=== PATIENT | female | born 1970 | race Caucasian/White ===

== ENCOUNTER 2016-04-16 20:41 | Emergency (ER) ==
[2016-04-16 21:55] LABS: URINE SOURCE CLEAN CATCH
[2016-04-16 21:55] LABS: MANUAL DIFF NEEDED? NO
[2016-04-16 21:59] LABS: BASO% 0.3 % (0.0-0.8); EOS# 0.08 X1000 (0.0-0.7); HEMATOCRIT 40.1 % (37.0-47.0); HEMOGLOBIN 13.6 g/dL (12.0-16.0); IMM GRAN# 0.01 X1000 (0.0-0.04); IMM GRAN% 0.1 % (0.0-0.5); LYMPH# 2.26 X1000 (1.2-3.4); LYMPH% 29.1 % (20.5-51.1); MCH 29.1 PG (27-31); MCHC 33.9 g/dL (33-37); MCV 85.7 FL (81-99); MONO% 7.7 % (1.7-9.3); MPV 9.6 FL (7.4-10.4); NEUT% 61.8 % (42.2-75.2); PLT 274 X1000 (130-400); RBC 4.68 XMIL (4.2-5.4)
[2016-04-16 22:12] LABS: AGAP 13; ALBUMIN 4.2 g/dL (3.5-5.0); ALKALINE PHOSPHATASE 122 U/L (32-104); AMYLASE 35 U/L (20-200); BUN 7 mg/dL (8-22); CALCIUM 9.2 mg/dL (8.8-10.2); CHLORIDE 101 mmol/L (98-107); COSMO 271; GOT 24 U/L (10-30); GPT 25 U/L (10-36); LIPASE 25 U/L (13-60); POTASSIUM 3.1 mmol/L (3.5-5.1); SODIUM 137 mmol/L (136-145); TCO2 24 mmol/L (25-35); TOTAL PROTEIN 7.6 g/dL (6.3-8.3)
[2016-04-16 22:18] LABS: BILIRUBIN URINE NEGATIVE (NEGATIVE); BLOOD URINE TRACE (NEGATIVE); CLARITY CLEAR (CLEAR); COLOR YELLOW; GLUCOSE URINE NEGATIVE (NEGATIVE); LEUKOCYTES URINE TRACE (NEGATIVE); NITRITE URINE NEGATIVE (NEGATIVE); PROTEIN URINE TRACE mg/dL (NEGATIVE); URINE CULTURE PL NEEDED? YES; URINE EPITHELIAL CELLS <10 /HPF (<10); URINE RBC <10 /HPF (<10); URINE WBC <10 /HPF (<10); UROBILINOGEN URINE NORMAL
[2016-04-16] MEDS ORDERED: ZOFRAN IV ONE (22:29)
[2016-04-16] MEDS ORDERED: NS 1,000 ML IV ONE (22:29)
[2016-04-16] MEDS ORDERED: PROTONIX IV ONE (22:29)
[2016-04-16] MEDS ORDERED: SODIUM CHLORIDE 0.9% INJ ONE (22:29)
--- NOTE | 2016-04-16 22:47 | PROVIDER DOCUMENTATION ---
HPI-Abdominal Pain/GI Problem - General Source: patient - History of Present Illness-ABD Nature of Presenting Problems: 45 y/o F presents to the ED with a days hx of abdominal pain and vomiting. Pt states her vomit began as green then was yellow bile. Pt states she went to the [facility] the first day and had an ultra sound but does not remember the DX. Pt states to the pain began in sh[place]ram upper middles stomach going into her back and RUQ pain Abdominal Pain Onset Location: reports: RUQ, epigastric Pain Radiation: reports: back Quality of Pain: reports: aching Severity in ED: reports: moderate Onset/Duration: reports: 3 days ago Timing: reports: still present Modifying Factors: improves with: nothing Associated Symptoms: reports: nausea, vomiting. denies: cough, fever/chills, shortness of breath, trouble walking <Gregory Davila - Last Filed: 04/16/16 22:42> <Angella Rees - Last Filed: 04/17/16 00:02> - General Chief Complaint: Abdominal Pain Stated Complaint: ABD PAIN,VOMITING GREEN STUFF Time Seen by Provider: 04/16/16 22:03 Allergies/Adverse Reactions: Patient Allergies Allergy/AdvReac Type Severity Reaction Status Date / Time Penicillins Allergy RASH Verified 04/16/16 20:55 Home Medications: Home Medication List Medication Instructions Recorded Confirmed Last Taken Type Dicyclomine [Bentyl] 10 mg PO 4XDAY #20 capsule 04/17/16 Unknown Rx Loperamide [Imodium] 2 mg PO PRN PRN #10 capsule 04/17/16 Unknown Rx Metoclopramide [Reglan] 10 mg PO Q6HR #14 tablet 04/17/16 Unknown Rx Review of Systems - Adult - REVIEW OF SYSTEMS - ADULT Constitutional: denies: chills, fever Eyes: reports: no symptoms reported Ears, Nose, Mouth & Throat: reports: no symptoms reported Cardiovascular: denies: chest pain, edema Respiratory: denies: cough, shortness of breath, wheezing Gastrointestinal: reports: abdominal pain, nausea, vomiting. denies: constipation, diarrhea Genitourinary: reports: no symptoms reported Musculoskeletal: reports: no symptoms reported Integumentary: reports: no symptoms reported Neurological: reports: no symptoms reported Psychiatric: reports: no symptoms reported Endocrine: reports: no symptoms reported Hematologic/Lymphatic: reports: no symptoms reported Allergic/Immunologic: reports: no symptoms reported All Other Systems: Reviewed and Negative <LolaGregory - Last Filed: 04/16/16 22:42> Past History - Adult - PAST MEDICAL HISTORY-ADULT Review of Records: reports: Old Records Reviewed, Nursing Assessment Review, Medications Reviewed - SOCIAL HISTORY Smoking: non-smoker Living Situation: family <LolaGregory - Last Filed: 04/16/16 22:42> Physical Exam-General - PHYSICAL EXAM-ADULT Initial Vital Signs Reviewed: Yes - CONSTITUTIONAL General Appearance: appears well, alert, no apparent distress - EYES Eyes: PERRL/EOMI, pink conjunctivae - HEAD, EARS, NOSE, MOUTH & THROAT HENMT: moist mucous membranes, normal ENT inspection, TMs normal, pharynx normal - NECK Neck: non-tender, full range of motion, supple - RESPIRATORY Respiratory: lungs clear, normal breath sounds, no pleuratic chest pain, no respiratory distress, no accessory muscle use - CARDIOVASCULAR Cardiovascular: normal peripheral pulses, regular rate, rhythm - GASTROINTESTINAL (ABDOMEN) Abdominal Exam: normal bowel sounds, soft, tenderness (generalized tenderness worse in the epigastric area) - MUSCULOSKELETAL Back Exam: normal inspection, no CVA tenderness, no vertebral tenderness Extremity: normal range of motion, non-tender, normal gait, normal inspection - SKIN Integumentary: normal color, normal turgor, warm/dry - NEUROLOGIC Neurologic: grossly normal, no motor/sensory deficits - PSYCHIATRIC Psych/Mental Status: normal mood/affect, normal thought content, normal thought process, oriented x 3 <LolaGregory - Last Filed: 04/16/16 22:42> Progress - PLAN OF CARE/RESULTS Progress/Plan/Lab Results: Orders Category Date Time Status CT ABD/PELVIS W/ IV CONT ONLY [CT] Stat Exams 04/16/16 22:31 Taken AMYLASE [CHEM] Stat Lab 04/16/16 21:20 Completed CBC WITH DIFF [HEME] Stat Lab 04/16/16 21:20 Completed COMPREHENSIVE METABOLIC PANEL [CHEM] Stat Lab 04/16/16 21:20 Completed LIPASE [CHEM] Stat Lab 04/16/16 21:[address] W/POSS RFLX CULT [URINALYSIS] Stat Lab 04/16/16 21:10 Completed URINE CULTURE [RM] Routine Lab 04/16/16 22:19 Ordered 0.9% Sodium Chloride Inj [Ns] 1,000 ml Med 04/16/16 22:29 Discontinued IV 999 mls/hr Ondansetron [Zofran] Med 04/16/16 22:29 Discontinued 4 mg IV NOW ONE Pantoprazole [Protonix] Med 04/16/16 22:29 Discontinued 40 mg IV NOW ONE Sodium Chloride 0.9% Med 04/16/16 22:29 Discontinued 10 ml INJ NOW ONE Vital Signs Temp Pulse Resp BP Pulse Ox 04/16/16 20:56 97.9 F 90 18 130/92 100 Penicillins Allergy (Verified 04/16/16 20:55) RASH No Home Medications 04/16/16 Laboratory 04/16/16 04/16/16 04/16/16 21:20 21:20 21:10 WBC 7.76 RBC 4.68 Hgb 13.6 Hct 40.1 MCV 85.7 MCH 29.1 MCHC 33.9 RDW Std Deviation 13.7 Plt Count 274 MPV 9.6 Immature Gran % (Auto) 0.1 Neut % (Auto) 61.8 Lymph % (Auto) 29.1 Ellis % (Auto) 7.7 Eos % (Auto) 1.0 Baso % (Auto) 0.3 Immature Gran # (Auto) 0.01 Neut # (Auto) 4.79 Lymph # (Auto) 2.26 Ellis # (Auto) 0.60 H Eos # (Auto) 0.08 Baso # (Auto) 0.02 Sodium 137 Potassium 3.1 L Chloride 101 Carbon Dioxide 24 L Anion Gap 13 BUN 7 L Creatinine 0.7 Estimated GFR/1.73 m2 > 60 BUN/Creatinine Ratio 10 Glucose 82 Calculated Osmolality 271 Calcium 9.2 Total Bilirubin 0.70 AST 24 ALT 25 Alkaline Phosphatase 122 H Total Protein 7.6 Albumin 4.2 Globulin 3.0 Albumin/Globulin Ratio 1.0 Amylase 35 Lipase 25 Urine Source CLEAN CATCH Urine Color YELLOW Urine Clarity CLEAR Urine pH 5.0 Ur Specific [place] 1.020 Urine Protein TRACE A Urine Ketones TRACE Urine Blood TRACE Urine Nitrite NEGATIVE Urine Bilirubin NEGATIVE Urine Urobilinogen NORMAL Urine Microscopic RBC <10 Urine WBC TRACE A Urine Microscopic WBC <10 Ur Epithelial Cells <10 Urine Bacteria 3+ Urine Glucose NEGATIVE Discussed pt, including labwork and CT results with Dr. Dalal- he agreed with d /c home with f/u to Dr. Palma and GI. Discussed results and f/u with pt. - CT/MRI 1 CT Study: Abdomen, Pelvis Impression: See EMR Report (1. Splenomegaly. 2. Indeterminate subcentimeter liver hypodensity. -per Dr. Florentino ([facility])) <Angella Rees - Last Filed: 04/17/16 00:02> Departure <Gregory Davila - Last Filed: 04/16/16 22:42> - Departure Time of Disposition Order: 23:50 Certified Medical Emergency: Emergent <Angella Rees - Last Filed: 04/17/16 00:02> - Departure DIAGNOSIS: Splenomegaly, Liver lesion Abdominal pain Qualifiers: Abdominal location: epigastric Qualified Code(s): R10.13 - Epigastric pain Vomiting Qualifiers: Vomiting type: unspecified Vomiting Intractability: non-intractable Nausea presence: unspecified Qualified Code(s): R11.10 - Vomiting, unspecified Disposition: HOME 01 Condition: Stable Additional Instructions: Take medications as directed. Drink plenty of fluids. Follow up with Dr. Palma or Dr. Moreno for further evaluation. ED Follow Up Instructions: You have been treated by a care provider in the Emergency Department. These instructions are being provided to you so you can have an understanding of how to care for yourself upon discharge. Upon discharge from the Emergency Department, you are responsible for making arrangements for follow-up care by a physician of your choice. Take all prescribed medications as directed. Return to the Emergency Department immediately for any new or worsening symptoms. You may call the Physician Referral phone number at [phone] to obtain a list of Physicians who are taking new patients. Prescriptions: Dicyclomine [Bentyl] 10 mg PO 4XDAY #20 capsule Loperamide [Imodium] 2 mg PO PRN PRN #10 capsule PRN Reason: Diarrhea Metoclopramide [Reglan] 10 mg PO Q6HR #14 tablet Referrals: None,PCP [Primary Care Provider] - Hans Palma MD [STAFF PHYSICIAN] - Rigo Moreno MD [STAFF PHYSICIAN] - Attestation - Scribe Verification/Attestation Scribe:: Gregory Davila Acting as Scribe for:: Michael Dalal Scribe documention review:: This chart was documented by a scribe and accurately reflects the service the provider performed and the decisions made by the provider. <Gregory Davila - Last Filed: 04/16/16 22:42> Physician Attestation
[2016-04-17 00:26] VITALS: BP 144/91
--- NOTE | 2016-04-17 08:05 | Diag Imaging Result Document ---
PROCEDURE NAME: CT ABD/PELVIS W/ IV CONT ONLY - 04/16/2016 CT ABDOMEN PELVIS WITH INTRAVENOUS CONTRAST, 04/16/2016: COMPARISON: None. FINDINGS: The lung bases are clear and the heart size is normal. There is a tiny cyst in the liver measuring less than 1 cm. The gallbladder is collapsed. The spleen is mildly enlarged measuring 14.2 x 5.1 cm. No bowel obstruction or inflammation. Normal appendix. Uterus is absent. Urinary bladder, ovaries and rectum are normal. Bony structures are intact. IMPRESSION: Mild splenomegaly. Otherwise, no acute disease.
== END 2016-04-17 00:26 | disposition home or self-care (01) ==
LOC: P.ED 20:41
DX: R16.1 Splenomegaly, not elsewhere classified (principal); K76.9 Liver disease, unspecified; R10.13 Epigastric pain; R11.2 Nausea with vomiting, unspecified; R10.11 Right upper quadrant pain; M54.9 Dorsalgia, unspecified; R10.817 Generalized abdominal tenderness; R10.816 Epigastric abdominal tenderness
CPT/HCPCS: 74177; 80053; 81001; 82150; 83690; 85025; 87088; 96361; 96374; 96375; C9113; J2405; J7030; Q9967; S0164

== ENCOUNTER 2016-04-18 17:27 | Emergency (ER) ==
[2016-04-18] MEDS ORDERED: ZOFRAN IV ONE (18:43)
[2016-04-18] MEDS ORDERED: SODIUM CHLORIDE 0.9% INJ ONE (18:43)
[2016-04-18] MEDS ORDERED: PROTONIX IV ONE (18:43)
[2016-04-18] MEDS ORDERED: NS 1,000 ML IV ONE (18:43)
--- NOTE | 2016-04-18 19:20 | PROVIDER DOCUMENTATION ---
HPI-Abdominal Pain/GI Problem - General Chief Complaint: Return/Recheck Stated Complaint: RETURN/RECHECK ABD PAIN Time Seen by Provider: 04/18/16 18:41 Source: patient Allergies/Adverse Reactions: Patient Allergies Allergy/AdvReac Type Severity Reaction Status Date / Time Penicillins Allergy RASH Verified 04/16/16 20:55 Home Medications: Home Medication List Medication Instructions Recorded Confirmed Last Taken Type Dicyclomine [Bentyl] 10 mg PO 4XDAY #20 capsule 04/17/16 Unknown Rx Loperamide [Imodium] 2 mg PO PRN PRN #10 capsule 04/17/16 Unknown Rx Metoclopramide [Reglan] 10 mg PO Q6HR #14 tablet 04/17/16 Unknown Rx Hydrocodone/APAP 7.5 mg/325 mg 1 each PO Q6H PRN PRN #20 tablet 04/18/16 Unknown Rx [Montrose-7.5] Promethazine [Phenergan] 25 mg WV Q6H PRN PRN #20 supp 04/18/16 Unknown Rx - History of Present Illness-ABD Nature of Presenting Problems: 45 y/o WF c/o abdominal pain x 5 days, in the epigastric to ruq region, radiation to the mid back and the right scapula; having nasuea and vomiting intermittanly since then. She was seen in the [facility] ER on Thursday and states "nothing was done," but reports them doing an xray and an US, stating she had polyps in her gallbladder per patient. She was then seen in our ER 2 days ago for the same complaint. Here a CBC, CMP, amylase and lipase were completed and an CT c IV contrast, showing a lesion on the liver and splenomegaly. She was given f/u to Dr. Palma and Dr. Moreno, GI. tTates she cannot get an appointment with either until the end of April. Last night at 0200, she was awakened by vomiting in her sleep, which she states she almost choked on. denies cough or sob today. Has vomiting 2-3 times since then with bouts of diarrhea. Patient admits to being under a lot of stress lately. Abdominal Pain Onset Location: reports: RUQ, epigastric Pain Radiation: reports: shoulder, back Quality of Pain: reports: aching, pressure Severity in ED: reports: mild Onset/Duration: reports: 5 days ago Timing: reports: still present Review of Systems - Adult - REVIEW OF SYSTEMS - ADULT Constitutional: reports: see HPI, fatique. denies: chills, fever Eyes: reports: no symptoms reported. denies: blurred vision, double vision, eye pain Ears, Nose, Mouth & Throat: reports: no symptoms reported. denies: ear pain, nose pain, throat pain Cardiovascular: reports: no symptoms reported. denies: chest pain, palpitations Respiratory: reports: no symptoms reported. denies: cough, shortness of breath Gastrointestinal: reports: see HPI, abdominal pain, diarrhea, nausea, poor appetite, vomiting Genitourinary: reports: no symptoms reported. denies: dysuria, discharge, frequency, incontinence Musculoskeletal: reports: no symptoms reported. denies: bone pain, back pain, muscle aches Integumentary: reports: no symptoms reported. denies: rash Neurological: reports: no symptoms reported. denies: headache/migraines Psychiatric: reports: no symptoms reported Endocrine: reports: no symptoms reported Hematologic/Lymphatic: reports: no symptoms reported Allergic/Immunologic: reports: no symptoms reported All Other Systems: Reviewed and Negative Past History - Adult - PAST MEDICAL HISTORY-ADULT Review of Records: reports: Old Records Reviewed, Nursing Assessment Review, Medications Reviewed Major Childhood Illnesses: reports: denies history Cardiovascular: reports: denies history Respiratory: reports: denies history Gastrointestinal: reports: denies history Obstetrical/Gynecological: reports: denies history Genitourinary: reports: denies history Musculoskeletal: reports: denies history Neurological: reports: denies history Endocrine/Immune: reports: denies history Other Conditions: reports: denies history - PRIOR SURGERIES/PROCEDURES Surgical/Procedure History: reports: reviewed, not pertinent - IMMUNIZATION STATUS Childhood Immunizations: See Nurse Assessment Flu Vaccine: See Nurse Assessment - FAMILY HISTORY Family History: reviewed, not pertinent - SOCIAL HISTORY Smoking: denies Substance Use: none/never Alcohol Use Frequency: never Physical Exam-General - PHYSICAL EXAM-ADULT Initial Vital Signs Reviewed: Yes - CONSTITUTIONAL General Appearance: appears well, alert, no apparent distress - EYES Eyes: PERRL/EOMI, pink conjunctivae - HEAD, EARS, NOSE, MOUTH & THROAT HENMT: normocephalic/atraumatic, moist mucous membranes - NECK Neck: non-tender, full range of motion, supple, normal inspection - RESPIRATORY Respiratory: chest non-tender, lungs clear, normal breath sounds, no pleuratic chest pain, no respiratory distress, no accessory muscle use. negative: respiratory distress, decreased breath sounds, accessory muscle use, crackles, rales, rhonchi, wheezing - CARDIOVASCULAR Cardiovascular: normal peripheral pulses, regular rate, rhythm - GASTROINTESTINAL (ABDOMEN) Abdominal Exam: normal bowel sounds, soft, no organomegaly, no pulsatile mass, tenderness (epigastric, rup). negative: McBurney's point tenderness, Ram's sign - MUSCULOSKELETAL Back Exam: normal inspection, CVA tenderness Extremity: normal gait - SKIN Integumentary: normal color, normal turgor, warm/dry - NEUROLOGIC Neurologic: grossly normal, no motor/sensory deficits - PSYCHIATRIC Psych/Mental Status: normal mood/affect, normal thought content, normal thought process Progress - PLAN OF CARE/RESULTS Progress/Plan/Lab Results: Vital Signs Temp Pulse Resp BP Pulse Ox 04/18/16 17:28 98.5 F 93 H 20 142/90 100 Penicillins Allergy (Verified 04/16/16 20:55) RASH Dicyclomine [Bentyl] 10 mg PO 4XDAY #20 capsule 04/17/16 Loperamide [Imodium] 2 mg PO PRN PRN #10 capsule 04/17/16 Metoclopramide [Reglan] 10 mg PO Q6HR #14 tablet 04/17/16 Dietary Diet NPO Start Thu 3 1843 Laboratory 04/18/16 19:08 Urine Source CLEAN CATCH Urine Color YELLOW Urine Clarity CLEAR Urine pH 5.0 Ur Specific Ronda 1.015 Urine Protein TRACE A Urine Ketones NEGATIVE Urine Blood TRACE Urine Nitrite NEGATIVE Urine Bilirubin NEGATIVE Urine Urobilinogen 1+(1 mg/dL) Urine WBC TRACE A Urine Glucose NEGATIVE Orders Category Date Time Status Saline Loc DIRECTED Care 04/18/16 18:43 Active NPO Diet 04/18/16 18:43 Active US GB < RUQ (LIMITED) [US] Stat Exams 04/18/16 18:52 Ordered AMYLASE [CHEM] Stat Lab 04/18/16 18:43 Ordered CBC WITH ELECTRONIC DIFF [HEME] Stat Lab 04/18/16 18:43 Ordered COMPREHENSIVE METABOLIC PANEL [CHEM] Stat Lab 04/18/16 18:43 Ordered LIPASE [CHEM] Stat Lab 04/18/16 18:[address] W/POSS RFLX CULT [URINALYSIS] Stat Lab 04/18/16 19:08 Results 0.9% Sodium Chloride Inj [Ns] 1,000 ml Med 04/18/16 18:43 Discontinued IV 999 mls/hr Ondansetron [Zofran] Med 04/18/16 18:43 Discontinued 8 mg IV NOW ONE Pantoprazole [Protonix] Med 04/18/16 18:43 Discontinued 40 mg IV NOW ONE Sodium Chloride 0.9% Med 04/18/16 18:43 Discontinued 10 ml INJ NOW ONE Laboratory Tests 04/18/16 04/18/16 04/18/16 19:08 20:04 20:04 WBC 7.17 RBC 4.48 Hgb 12.8 Hct 39.1 MCV 87.3 MCH 28.6 MCHC 32.7 L RDW Std Deviation 13.9 Plt Count 283 MPV 9.6 Immature Gran % (Auto) 0.3 Neut % (Auto) 62.3 Lymph % (Auto) 30.4 Grundy % (Auto) 6.0 Eos % (Auto) 0.6 Baso % (Auto) 0.4 Immature Gran # (Auto) 0.02 Neut # (Auto) 4.47 Lymph # (Auto) 2.18 Grundy # (Auto) 0.43 Eos # (Auto) 0.04 Baso # (Auto) 0.03 Sodium 139 Potassium 3.2 L Chloride 105 Carbon Dioxide 24 L Anion Gap 10 BUN 9 Creatinine 0.7 Estimated GFR/1.73 m2 > 60 BUN/Creatinine Ratio 13 Glucose 80 Calculated Osmolality 275 Calcium 8.9 Total Bilirubin 0.60 AST 32 H ALT 34 Alkaline Phosphatase 122 H Total Protein 7.3 Albumin 3.9 Globulin 3.0 Albumin/Globulin Ratio 1.0 Amylase 35 Lipase 33 Urine Source CLEAN CATCH Urine Color YELLOW Urine Clarity CLEAR Urine pH 5.0 Ur Specific Ronda 1.015 Urine Protein TRACE A Urine Ketones NEGATIVE Urine Blood TRACE Urine Nitrite NEGATIVE Urine Bilirubin NEGATIVE Urine Urobilinogen 1+(1 mg/dL) Urine Microscopic RBC <10 Urine WBC TRACE A Urine Microscopic WBC <10 Ur Epithelial Cells >10 A Urine Bacteria 1+ Urine Glucose NEGATIVE Discussed patient with Dr. Dalal who reviewed chart and radiology, agrees with treatment disposition and plan. - REASSESSMENT Reassessment #1 Time Reassessed: 20:52 (Patient feeling better. I discussed lab results and US report, she verbalized understanding and agreement. ) Status: improving - XRAY 1 XRAY: Bilateral XRAY Study: Lumbar Spine Impression: Normal (NAD per Dr. Dalal, ER prelim) - ULTRASOUND (By Radiology) 1 US Study: Gallbladder Impression: Abnormal (1. small gallstones in the gallbladder. 2. partially contracted gallbladder, possible mild GB wall thickening. 3. positive ram's sign. 4. normal CBD at 3 mm. 5. fally inflitration of the liver per Dr. Garcia ) Departure - Departure Time of Disposition Order: 20:53 DIAGNOSIS: Gallbladder attack Disposition: HOME 01 Certified Medical Emergency: Emergent Condition: Stable Additional Instructions: Follow up with Dr. Pelaez, surgeon ED Follow Up Instructions: You have been treated by a care provider in the Emergency Department. These instructions are being provided to you so you can have an understanding of how to care for yourself upon discharge. Upon discharge from the Emergency Department, you are responsible for making arrangements for follow-up care by a physician of your choice. Take all prescribed medications as directed. Return to the Emergency Department immediately for any new or worsening symptoms. You may call the Physician Referral phone number at [phone] to obtain a list of Physicians who are taking new patients. Prescriptions: Hydrocodone/APAP 7.5 mg/325 mg [Montrose-7.5] 1 each PO Q6H PRN PRN #20 tablet PRN Reason: Pain Promethazine [Phenergan] 25 mg WV Q6H PRN PRN #20 supp PRN Reason: Vomiting Referrals: None,PCP [Primary Care Provider] - Alysia Foy MD [STAFF PHYSICIAN] - Alphonso Pelaez MD [STAFF PHYSICIAN] - Forms: Return to School/Parent Work Attestation - Physician/ NEVIN Attestation Patient care was provided by Advanced Practice Provider:: Yes Advanced Practice Provider:: Catalina Santillan Advanced Practice Provider documentation review:: The Mid-level provider documentation, treatment plan and medical decision making was reviewed by the physician who agrees with all treatment and medical decision making by the MLP.
[2016-04-18 19:30] LABS: URINE SOURCE CLEAN CATCH
[2016-04-18 19:41] LABS: BILIRUBIN URINE NEGATIVE (NEGATIVE); BLOOD URINE TRACE (NEGATIVE); CLARITY CLEAR (CLEAR); COLOR YELLOW; GLUCOSE URINE NEGATIVE (NEGATIVE); LEUKOCYTES URINE TRACE (NEGATIVE); NITRITE URINE NEGATIVE (NEGATIVE); PROTEIN URINE TRACE mg/dL (NEGATIVE); SP GRAVITY URINE 1.015; UROBILINOGEN URINE 1+(1 mg/dL)
[2016-04-18 19:59] LABS: URINE EPITHELIAL CELLS >10 /HPF (<10); URINE RBC <10 /HPF (<10); URINE WBC <10 /HPF (<10)
[2016-04-18 20:00] LABS: URINE CULTURE PL NEEDED? YES
[2016-04-18 20:07] LABS: MANUAL DIFF NEEDED? NO
[2016-04-18 20:12] LABS: BASO% 0.4 % (0.0-0.8); EOS# 0.04 X1000 (0.0-0.7); EOS% 0.6 % (0.0-10.0); HEMATOCRIT 39.1 % (37.0-47.0); HEMOGLOBIN 12.8 g/dL (12.0-16.0); IMM GRAN# 0.02 X1000 (0.0-0.04); IMM GRAN% 0.3 % (0.0-0.5); LYMPH# 2.18 X1000 (1.2-3.4); LYMPH% 30.4 % (20.5-51.1); MCH 28.6 PG (27-31); MCHC 32.7 g/dL (33-37); MCV 87.3 FL (81-99); MONO# 0.43 X1000 (0.11-0.59); MPV 9.6 FL (7.4-10.4); NEUT% 62.3 % (42.2-75.2); PLT 283 X1000 (130-400); RBC 4.48 XMIL (4.2-5.4)
[2016-04-18 20:40] LABS: AGAP 10; ALBUMIN 3.9 g/dL (3.5-5.0); ALKALINE PHOSPHATASE 122 U/L (32-104); AMYLASE 35 U/L (20-200); BUN 9 mg/dL (8-22); CALCIUM 8.9 mg/dL (8.8-10.2); CHLORIDE 105 mmol/L (98-107); COSMO 275; GOT 32 U/L (10-30); GPT 34 U/L (10-36); LIPASE 33 U/L (13-60); POTASSIUM 3.2 mmol/L (3.5-5.1); SODIUM 139 mmol/L (136-145); TCO2 24 mmol/L (25-35); TOTAL PROTEIN 7.3 g/dL (6.3-8.3)
[2016-04-18 21:11] VITALS: BP 146/087
--- NOTE | 2016-04-19 09:08 | Diag Imaging Result Document ---
PROCEDURE NAME: US GB < RUQ (LIMITED) - 04/18/2016 ULTRASOUND GALLBLADDER: FINDINGS: The gallbladder is visualized and appears to be partially contracted. Allowing for this, the gallbladder maher appear mildly thickened. There are apparently 3 or 4 small gallstones in the gallbladder. There is no pericholecystic fluid seen. The technologist reports positive sonographic Ram's sign. The common bile duct is normal caliber at 3 mm. The liver appears diffusely echodense suggesting fatty infiltration. The right kidney and visualized portions of the pancreas are unremarkable. Much of the pancreas is obscured by bowel gas artifact, however. IMPRESSION: 1. Partially contracted gallbladder. Small gallstones in gallbladder. Mild gallbladder wall thickening. Positive sonographic Ram's sign. 2. Normal common bile duct at 3 mm. 3. Apparent fatty infiltration of liver noted. Preliminary results were provided on the evening of 04/18/2016.
== END 2016-04-18 21:09 | disposition home or self-care (01) ==
LOC: P.ED 17:27
DX: K82.8 Other specified diseases of gallbladder (principal); R10.13 Epigastric pain; R10.11 Right upper quadrant pain; M54.6 Pain in thoracic spine; M25.511 Pain in right shoulder; R11.2 Nausea with vomiting, unspecified; R19.7 Diarrhea, unspecified; R53.83 Other fatigue; R10.811 Right upper quadrant abdominal tenderness; R10.816 Epigastric abdominal tenderness
CPT/HCPCS: 76705; 80053; 81001; 82150; 83690; 85025; 87088; 96361; 96374; 96375; C9113; J2405; J7030; S0164

== ENCOUNTER 2016-04-22 12:22 | Day surgery (SDC) ==
[2016-04-22] MEDS ORDERED: LR 1,000 ML ONE ×3 (12:39→16:35)
[2016-04-22] MEDS ORDERED: KEFZOL 1 GM/D5W 50 ML ONE (12:44)
[2016-04-22] MEDS ORDERED: PEPCID ONE (13:13)
[2016-04-22] MEDS ORDERED: REGLAN ONE (13:14)
[2016-04-22] MEDS ORDERED: MARCAINE 0.25% PF/EPI 1:200,000 ONE (14:33)
[2016-04-22] MEDS ORDERED: SODIUM CHLORIDE 0.9% ONE (14:33)
--- NOTE | 2016-04-22 15:38 | EKG Report ---
Test Performed on : 04/22/2016 1:19:52 PM Test Reason : preopt Blood Pressure : / mmHG Vent. Rate : 069 BPM Atrial Rate : 069 BPM P-R Int : 152 ms QRS Dur : 084 ms QT Int : 376 ms P-R-T Axes : 036 006 011 degrees QTc Int : 402 ms Normal sinus rhythm. Normal ECG No previous ECGs available Confirmed by Kerri LOPEZ, Mikie Velasquez ([id number]) on 04/22/2016 5:24:52 PM
--- NOTE | 2016-04-22 16:00 | OPERATIVE NOTE ---
PROCEDURE DATE: 04/22/2016 PREOPERATIVE DIAGNOSIS: Chronic cholecystitis with cholelithiasis. POSTOPERATIVE DIAGNOSIS: Chronic cholecystitis with cholelithiasis. PROCEDURE PERFORMED: Laparoscopic cholecystectomy with intraoperative cholangiogram. SURGEON: Cherie Pelaez MD ANESTHESIA: General, in addition to local anesthetic. ESTIMATED BLOOD LOSS: 25 mL. DRAINS: None. INDICATIONS: Lydia Thompson is a 45-year-old female whom I saw all my outpatient offices today with epigastric and right upper quadrant pain. Ultrasound documented cholelithiasis. Cholecystectomy was recommended. FINDINGS: Her gallbladder was chronically inflamed and had stones within it. Her liver was slightly full and was fatty infiltrated. We did do an intraoperative cholangiogram which showed free flow of the dye into the duodenum without evidence of extrahepatic stones or obstruction. There was no abnormal dilatation of the extrahepatic bile ducts. The surface of the bowel appeared to be normal. No other intraabdominal pathology was noted. We felt we did the operation safely. DESCRIPTION OF PROCEDURE: The patient was brought to the operating room, placed supine, received general anesthesia, and her abdomen was prepped and draped within the sterile field. She received Ancef prophylactically. We made a transverse incision below the umbilicus with a 15 blade scalpel, and this incision was carried down through the skin and subcutaneous tissue to the Veress needle. A transverse incision was made on the skin with a 15 blade scalpel and then a Veress needle was introduced through this incision into the abdomen. A pneumoperitoneum was established. The Veress needle was removed and we placed an 11 mm trocar through this incision into the abdomen. The camera was placed through this port and the abdomen was explored for injury and there was none. Three other trocars were placed along the right costal margin under direct vision of the camera. We placed an 11 mm trocar just to the right of midline and two 5 mm trocars in our midclavicular and anterior axillary lines. Through our most lateral port, the gallbladder was grasped retracted superiorly along with the right lobe of the liver. Another grasper was used to grab the body of the gallbladder and the triangle of Calot was bluntly dissected. We identified the cystic duct along its length. We placed a clip at the cystic duct-gallbladder junction. We made a small incision in the cystic duct using hook scissors and a taut intraoperative cholangiogram catheter was used to perform the cholangiogram with findings above. Once the cholangiogram was completed, we removed the catheter and 2 clips were placed proximally on the cystic duct. We divided the cystic duct between clips using hook scissors. The cystic artery was identified. A clip was placed distally and 2 proximally. It was divided using hook scissors. The spatula cautery was used to remove the gallbladder from the liver bed. There was no spillage of stones or bile during this procedure. We did use an endobag to remove the gallbladder through our umbilical incision. We placed the trocar back through this incision and the area of operation was thoroughly inspected, irrigated, and the irrigation was removed with suction. There was no evidence of ongoing bleeding or bile leak and no drains were left. All trocars were removed under direct vision of the camera. The pneumoperitoneum was allowed to dissipate. I used figure-of- eight 2-0 Vicryl stitches to reapproximate the fascia below the umbilicus and all skin was closed with 4-0 Monocryl subcuticular stitches. Steri-Strips were applied. Plans are for her to go to the recovery room and then be discharged home later today under the care of her sister with followup in our outpatient offices in 7-10 days.
[2016-04-22] MEDS ORDERED: DIPRIVAN 1% ONE (16:31)
[2016-04-22] MEDS ORDERED: FENTANYL ONE (16:31)
[2016-04-22] MEDS ORDERED: VERSED ONE (16:31)
[2016-04-22] MEDS ORDERED: TORADOL ONE (16:35)
[2016-04-22] MEDS ORDERED: NEOSTIGMINE ONE (16:35)
[2016-04-22] MEDS ORDERED: ZEMURON ONE (16:35)
[2016-04-22] MEDS ORDERED: QUELICIN (DOSE) ONE (16:35)
[2016-04-22] MEDS ORDERED: ROBINUL ONE (16:35)
[2016-04-22] MEDS ORDERED: ZOFRAN ONE ×2 (16:35→17:09)
[2016-04-22] MEDS ORDERED: XYLOCAINE-MPF 2% ONE (16:35)
[2016-04-22] MEDS ORDERED: DECADRON ONE (16:35)
[2016-04-22 18:06] VITALS: BP 139/88
[2016-04-22] MEDS ORDERED: ULTRAM ONE (18:25)
--- NOTE | 2016-04-23 07:18 | Diag Imaging Result Document ---
PROCEDURE NAME: OPERATIVE CHOLANGIOGRAM - 04/22/2016 OPERATIVE CHOLANGIOGRAM, 04/22/2016: COMPARISON: 04/16/2016. FINDINGS: The exam was performed by the patient's surgeon. Contrast was infused into the cystic duct. This outlines normal hepatic collecting ducts and common bile ducts. There is good passage of contrast into the duodenum. IMPRESSION: No complication.
== END 2016-04-22 18:31 | disposition home or self-care (01) ==
LOC: OR 12:22
PROVIDERS: ATTEND Surgery
DX: K80.10 Calculus of gallbladder with chronic cholecystitis without obstruction (principal)
CPT/HCPCS: 74300; 88304; 93005; 93010; C1751; J0330; J0690; J1100; J1885; J2250; J2405; J3010; J7120; Q9966; J2710